=== PATIENT | female | born 1980 | race Caucasian/White ===

== ENCOUNTER 2018-02-23 06:28 | Day surgery (SDC) | payer BC ==
[~2018-02-23] VITALS: Ht 165.1 cm; Wt 88.5 kg
[~2018-02-23 06:28] MED LIST: DAILY MULTIPLE1 EACH PO; IRON325 M1 PO; LEVOTHYROXINE100 MCG PO; LISINOPRIL10 MG PO
[2018-02-23 07:38] VITALS: BP 127/81
[2018-02-23 14:21] VITALS: BP 136/83
[2018-02-23 16:05] VITALS: BP 122/73
[2018-02-23 19:31] VITALS: BP 112/76
[2018-02-24 00:17] VITALS: BP 111/72
[2018-02-24 03:33] VITALS: BP 100/65
[2018-02-24 08:26] VITALS: BP 108/67
[2018-02-24 12:30] VITALS: BP 102/60
== END 2018-02-24 12:53 | disposition home or self-care (01) ==
LOC: SDC 06:28 → 2EASTP 12:07 → 2SOUTH 12:07 → 2EASTP 12:07 → 2SOUTH 12:07 → ENRESERV 13:04 → 2EASTP 14:17 → SDC 14:53 → 2EASTP 02-24 12:53
PROC: 0GTK0ZZ Resection of Thyroid Gland, Open Approach (ICD-10-PCS; principal; 2018-02-23)
PROC: 0GBJ0ZZ Excision of Thyroid Gland Isthmus, Open Approach (ICD-10-PCS; principal; 2018-02-23)
DX: C73 Malignant neoplasm of thyroid gland (principal); E06.3 Autoimmune thyroiditis; I10 Essential (primary) hypertension; E78.5 Hyperlipidemia, unspecified; E03.9 Hypothyroidism, unspecified
CPT/HCPCS: 82310; 88307; 93005; G0378; J0131; J0690; J2250; J2405; J3010; J7120; Q0175